=== PATIENT | male | born 1995 | race Caucasian/White ===

== ENCOUNTER 2018-01-18 03:15 | Emergency (ER) | payer SELFPAY ==
[~2018-01-18] VITALS: Ht 182.9 cm; Wt 181.4 kg
[~2018-01-18 03:15] MED LIST: PROAIR HFA0.09 MG/A1 IH
[2018-01-18 03:32] VITALS: Ht 182.9 cm; Wt 181.4 kg
[2018-01-18 04:39] VITALS: BP 164/95
== END 2018-01-18 04:39 | disposition home or self-care (01) ==
LOC: ED 03:15
DX: H60.92 Unspecified otitis externa, left ear (principal)

== ENCOUNTER 2018-01-19 14:41 | Emergency (ER) | payer SELFPAY ==
[~2018-01-19] VITALS: Ht 182.9 cm; Wt 181.6 kg
[2018-01-19 14:46] VITALS: BP 167/79; Ht 182.9 cm; Wt 181.6 kg
== END 2018-01-19 17:51 | disposition home or self-care (01) ==
LOC: ED 14:41
DX: H60.92 Unspecified otitis externa, left ear (principal)

== ENCOUNTER 2018-12-06 01:28 | Emergency (ER) | payer SELFPAY ==
[~2018-12-06] VITALS: Ht 188 cm; Wt 172.4 kg
[2018-12-06 01:34] VITALS: Ht 188 cm; Wt 172.4 kg
[2018-12-06 03:36] LABS: BASOPHIL % 0.4 % (0-2); PLATELET COUNT 297 x10^3mcL (130-400)
[2018-12-06 03:41] LABS: CALCIUM 9.1 mg/dL (8.5-10.1); CARBON DIOXIDE 25.5 mmol/L (21-32); CHLORIDE SERUM 105 mmol/L (98-107); CREATININE SERUM 0.9 mg/dL (0.7-1.3); GFR1 > 60 mL/min; GLUCOSE SERUM 141 mg/dL (74-106); POTASSIUM SERUM 3.8 mmol/L (3.5-5.1); SODIUM SERUM 142 mmol/L (136-145)
[2018-12-06 03:43] LABS: ALBUMIN 3.7 g/dL (3.4-5.0); ALKALINE PHOSPHATASE 72 U/L (46-116); ALT/SGPT 30 U/L (16-63); AST/SGOT 11 U/L (15-37); TOTAL PROTEIN, SERUM 7.6 g/dL (6.4-8.2)
[2018-12-06 04:01] LABS: BILIRUBIN TOTAL 0.3 mg/dL (0.20-1.00)
[2018-12-06 06:12] VITALS: BP 138/91
== END 2018-12-06 06:12 | disposition home or self-care (01) ==
LOC: ED 01:28
PROVIDERS: Emergency Medicine
DX: R07.89 Other chest pain (principal)
CPT/HCPCS: 36415; 85378; J1885; Q0092

== ENCOUNTER 2019-10-06 15:55 | Emergency (ER) | payer MEDICAID ==
[~2019-10-06] VITALS: Ht 188 cm; Wt 171.0 kg
[2019-10-06 16:01] VITALS: Ht 188 cm; Wt 171.0 kg
[2019-10-06 18:32] VITALS: BP 141/71
== END 2019-10-06 18:32 | disposition home or self-care (01) ==
LOC: ED 15:55
DX: F41.9 Anxiety disorder, unspecified (principal); K21.9 Gastro-esophageal reflux disease without esophagitis